=== PATIENT | male | born 1960 | race Caucasian/White ===

== ENCOUNTER 2025-05-25 06:31 | Day surgery (SDC) | payer MEDICARE, MEDICAID ==
[2025-05-25] MEDS ORDERED: ANESTHESIA TRAY IN PYXIS 1 EA TRAY MC ONE (07:23)
[2025-05-25] MEDS ORDERED: FAMOTIDINE/PF INJ 20 MG/2 ML VIAL IV ONE (07:28)
[2025-05-25] MEDS ORDERED: MIDAZOLAM HCL 2 MG/2ML VIAL ONE (07:28)
[2025-05-25 07:45] LABS: INR 1.21 (0.91-1.10)
[2025-05-25] MEDS ORDERED: FENTANYL PF 100MCG/2ML AMPUL ONE (08:54)
== END 2025-05-25 10:20 | disposition home or self-care (01) ==
LOC: DS 06:31
PROVIDERS: ATTEND Surgery
DX: R19.4 Change in bowel habit (principal); R14.0 Abdominal distension (gaseous); R11.2 Nausea with vomiting, unspecified; K44.9 Diaphragmatic hernia without obstruction or gangrene; K57.30 Diverticulosis of large intestine without perforation or abscess without bleeding; D12.6 Benign neoplasm of colon, unspecified; K20.90 Esophagitis, unspecified without bleeding; K29.70 Gastritis, unspecified, without bleeding; K29.80 Duodenitis without bleeding; K58.9 Irritable bowel syndrome, unspecified; Z79.899 Other long term (current) drug therapy; Z98.890 Other specified postprocedural states
CPT/HCPCS: 36415; 43239; 45380; 45385; 71045; 85610; 85730; A4223; J1308; J2250; J2704; J3010; J3490; J7030; J7050